=== PATIENT | male | born 1955 | race Caucasian/White ===

== ENCOUNTER 2021-12-14 12:23 | Emergency (ER) | payer BC, SELFPAY ==
--- NOTE | 2021-12-14 12:34 | ED.FEMALEGU ---
HPI - Female Genitourinary General Stated complaint: PAINFUL URINATION Source: patient and RN notes reviewed Mode of arrival: ambulatory Limitations: no limitations History of Present Illness MD elicited complaint: UTI Related Data Allergies Allergy/AdvReac Type Severity Reaction Status Date / Time No Known Allergies Allergy Mild Unverified 12/13/17 09:26 Review of Systems Review of Systems: CONSTITUTIONAL: Denies malaise, chills, sweats, or fever. CARDIOVASCULAR: Denies chest pain, palpitations, or edema. RESPIRATORY: Denies cough or dyspnea. GASTROINTESTINAL: Denies abdominal pain, nausea, vomiting, diarrhea GENITOURINARY: Reports dysuria, frequency, urgency, suprapubic pressure. Denies flank pain or hematuria. SKIN: Denies rash or itching. MUSCULOSKELETAL: Denies back pain or myalgia. All systems reviewed & are unremarkable except as noted in HPI and below PMFSH Comments At time of signature, agree with nursing past medical, surgical, social and family history. There is no relevant family history pertinent to the presenting complaint Exam Narrative: GENERAL: Well-appearing, well-nourished, and in no acute distress. HEAD: Normocephalic. EYES: PERRLA, conjunctivae clear. NECK: Supple. No lymphadenopathy CHEST: Clear to auscultation. No respiratory distress. HEART: Regular rate and rhythm. ABDOMEN: Soft, nontender upon palpation, nondistended, normal active bowel sounds, no palpable or pulsatile masses, no guarding. No CVA tenderness SKIN: Warm, dry, no rash. NEURO: Alert and oriented x3. PSYCH: Normal mood and affect Course Course Emergency Course: Patient is aware of diagnosis, understands and agrees to treatment plan. Anticipatory guidance given. Patient agrees to follow-up as directed and is aware of reasons to seek care at the emergency department. Portions of this record may have been created with voice recognition software Level of Care: Express Care Visit Vital Signs Vital signs: Reviewed. MDM - Female Genitourinary MDM Narrative Medical decision making narrative: Exam findings and UA show no acute concerns or changes; patient is non-toxic appearing and is in no distress. Patient is appropriate for outpatient treatment and follow-up. Differential Diagnosis Differential diagnosis: Likely urinary tract infection and cystitis Critical Care Time Critical Care Time Critical Care Time: No Discharge Plan Discharge Follow-up/Referrals: PHYSICIAN,[employer] [Primary Care Provider] -
[2021-12-14 12:55] VITALS: BP 131/81; PULSE 55; RESP 16; TEMP 36.8; O2SAT 97
--- NOTE | 2021-12-14 13:45 | ED.MALEGU ---
HPI - Male Genitourinary General Chief complaint: Urogenital-Male Stated complaint: PAINFUL URINATION Time Seen by Provider: 12/14/21 13:40 Source: patient and RN notes reviewed Mode of arrival: ambulatory Limitations: no limitations History of Present Illness HPI Narrative: 66-year-old male presents concern for intermittent dysuria for 1-1/2 months. Reports he has been taking Azo every time he has episodes of dysuria which improved the pain. Reports symptoms began again yesterday, he took Azo. He reports urine frequency, urgency. He denies hematuria, flank pain, body aches, chills, sweats, abdominal pain, nausea, low back pain. He reports he does feel that he is able to empty his bladder. He denies any testicular redness, swelling, pain. MD Complaint: dysuria Related Data Home Medications Medication Instructions Recorded Confirmed lisinopril 20 mg tablet mg 12/14/21 Allergies Allergy/AdvReac Type Severity Reaction Status Date / Time No Known Allergies Allergy Mild Verified 12/14/21 12:53 Review of Systems Review of Systems: CONSTITUTIONAL: Denies malaise, chills, sweats, or fever. CARDIOVASCULAR: Denies chest pain, palpitations, or edema. RESPIRATORY: Denies cough or dyspnea. GASTROINTESTINAL: Denies abdominal pain, nausea, vomiting, diarrhea GENITOURINARY: Reports dysuria, frequency, urgency. Denies testicular redness, swelling, pain, suprapubic pressure. Denies flank pain or hematuria. SKIN: Denies rash or itching. MUSCULOSKELETAL: Denies back pain or myalgia. All systems reviewed & are unremarkable except as noted in HPI and below PMFSH Comments At time of signature, agree with nursing past medical, surgical, social and family history. There is no relevant family history pertinent to the presenting complaint Exam Narrative: GENERAL: Well-appearing, well-nourished, and in no acute distress. HEAD: Normocephalic. EYES: PERRLA, conjunctivae clear. NECK: Supple. No lymphadenopathy CHEST: Clear to auscultation. No respiratory distress. HEART: Regular rate and rhythm. ABDOMEN: Soft, nontender upon palpation, nondistended, normal active bowel sounds, no palpable or pulsatile masses, no guarding. No CVA tenderness SKIN: Warm, dry, no rash. NEURO: Alert and oriented x3. PSYCH: Normal mood and affect Course Course Emergency Course: Patient is aware of diagnosis, understands and agrees to treatment plan. Anticipatory guidance given. Patient agrees to follow-up as directed and is aware of reasons to seek care at the emergency department. Portions of this record may have been created with voice recognition software Level of Care: Express Care Visit Vital Signs Vital signs: Vital Signs Temperature 98.2 F 12/14/21 12:55 Pulse Rate 55 L 12/14/21 12:55 Respiratory Rate 16 12/14/21 12:55 Blood Pressure 131/81 12/14/21 12:55 Pulse Oximetry 97 12/14/21 12:55 Oxygen Delivery Room Air 12/14/21 12:55 Temperature 98.2 F 12/14/21 12:55 Pulse Rate 55 L 12/14/21 12:55 Respiratory Rate 16 12/14/21 12:55 Blood Pressure 131/81 12/14/21 12:55 Pulse Oximetry 97 12/14/21 12:55 Oxygen Delivery Room Air 12/14/21 12:55 Reviewed. MDM - Male Genitourinary MDM Narrative Medical decision making narrative: Exam findings show no acute concerns or changes; patient is non-toxic appearing and is in no distress. Patient is appropriate for outpatient treatment and follow-up. Differential Diagnosis Differential diagnosis: Likely urinary tract infection, urethritis, epididymitis and prostatitis Lab Data Labs: Urine Glucose Trace Reference Range: Negative Urine Bilirubin 1+ Reference Range: Negative Urine Ketone Trace Reference Range: Negative Urine Specific [place] 1.015
== END 2021-12-14 13:57 | disposition home or self-care (01) ==
PROVIDERS: Emergency Provider Nurse Practitioner
DX: R30.0 Dysuria (principal); R35.0 Frequency of micturition; R39.15 Urgency of urination; I10 Essential (primary) hypertension
CPT/HCPCS: 81003; 87086; 99203; G0463

== ENCOUNTER 2022-03-05 02:22 | Day surgery (SDC) | payer BC, SELFPAY ==
[2022-02-24 10:43] VITALS: BMI 26.8
--- NOTE | 2022-02-24 11:10 | PC.NURSE ---
Report to the Outpatient Waiting Room, entrance under the green pavilion located off [facility], at time ___0845____ on date __03/05/22 . OR Time: ____1044____. Time changes happen often and if your time is changed the preop area will call you the afternoon before. - You and your visitor will be asked to self-screen and do not enter if you have any COVID symptoms. - We encourage only one visitor and NO visitors under age 16 are allowed at this time. Your visitor will receive communication by the phone number that is given day of service. - The patient visitor is requested to social distance or may leave the building when not with patient due to restrictions. - A mask is required within the hospital. Patients may have clear liquids (water, carbonated beverages, clear teas, apple juice) until 3 hours prior to surgery (0745 AM) with a maximum of 20 ounces. - No food from midnight until time of surgery - Infants may have breast milk until 4 hours before surgery, formula 6 hours prior to surgery. - Children will be allowed to drink immediately following surgery. If applicable, please bring a bottle or sippy cup to assist with drinking. Juice, water, soda, and popsicles are readily available. For infants on formula, please bring formula the day of surgery. Pacifiers are allowed. Take the following medications with a SIP of water the morning of surgery: N/A Medications to discontinue per physician N/A Date to take last dose Please no make-up, nail ugandan, hairspray, perfume, deodorant, or body powder the day of surgery. No jewelry (including any body piercings) or valuables the day of surgery, leave them at home. Please take a shower or bath the night before, or the morning of, surgery with an antibacterial soap. Wear comfortable, loose fitting clothing. Children are encouraged to wear pajamas. - Jewelry must be removed prior to entering the operating room. Rings and piercings that are not removed may be cut off. - The hospital will not accept responsibility for valuables. - Please leave all valuables, including medications, at home the day of surgery. If you are going home after surgery, a licensed electric train driver must drive you home. - NO public transportation without another adult. - We recommend that an adult stay with you for 24 hours following discharge. - We also recommend that you do not drive, make important decision, drink alcoholic beverages, or take any drugs that were not prescribed by your health care provider for at least 24 hours after your discharge time. For Pediatric surgeries, we recommend two adults accompany the child home. Follow any additional instructions given to you from your surgeon. If you or anyone in your household have experienced Covid symptoms in the past week, please notify your surgeon or the nurse liaison at the phone number below for possible testing. Telephone instructions given to ___PT and asked if any additional questions and then verbalized understanding. Patient advised to call surgeon office or pre surgery nurse liaison [phone] if any additional questions.
--- NOTE | 2022-03-04 10:28 | P.PNAN_ITS ---
Anes - Initial Pre Proc Eval Procedure: Operation Date: 03/05/22 10:45 Proposed Procedures p Cystoscopy, Bladder Biopsy - Scotty Rodney MD Date/Time: 03/04/22 10:28 Surgeon: Scotty Rodney MD Pre Op Diagnosis: urinary frequency, abnormal cytology Patient Data Age: 67 Gender: M Height: 1.84 m Weight: 90.9 kg Allergies Allergy/AdvReac Type Severity Reaction Status Date / Time No Known Allergies Allergy Mild Verified 02/24/22 10:42 Home Medications Medication Instructions Recorded Confirmed Type lisinopril 20 mg tablet 20 mg PO DAILY 12/14/21 03/05/22 History Patient hx anesthesia problems: none Family hx anesthesia problems: none Results Review: All pre-operative results and documents have been reviewed as part of the pre- operative evaluation. [facility] Past Medical History Medical History (Updated 01/07/22 @ 14:20 by Genesis Echols NP) Arthritis Dysuria Encounter to establish care HTN (hypertension) Migraine Urinary hesitancy Urinary urgency Family History Family History (Updated 01/07/22 @ 13:14 by Zahida Morgan MA) Father Alcoholism Depression Heart disease Anxiety Mother Heart disease Sibling Alcoholism Breast cancer Diabetes mellitus Depression Anxiety Other Depression Anxiety Grandparent Alcoholism Lung cancer Grandparent Alcoholism Social History Social History (Updated 01/07/22 @ 13:23 by Zahida Morgan MA) Smoking status: Former smoker Second hand tobacco smoke exposure: No Additional smoking assessment comments: PT STATES 1-4PK/DAY/6YRS/QUIT 1988 Alcohol intake: never Substance use: never Substance use type: does not use Living arrangements: with family Spiritual care concerns: No Anes - Eval Final PreProcedure Day of Procedure 03/04/22 10:28 Patient weight: overweight Heart: regular rate and rhythm Lungs: clear to auscultation Airway: Mallampati scale class II Neurological: alert and oriented Last oral intake: >/= 8 hours ASA classification: II Emergent: no Anesthetic plan: proceed Anesthesia type and monitoring: general LMA and standard monitoring Results Review: All pre-operative results and documents have been reviewed as part of the pre- operative evaluation. Informed Consent: The patient's anesthetic plan and its attendant risks and benefits were discussed with the patient/family/POA. Questions were solicited and answers provided to the satisfaction of the patient/family/POA.
[2022-03-05] VITALS (9 sets, daily range): BP systolic 85–143; BP diastolic 52–83; PULSE 39–52; RESP 11–20; TEMP 36.2–36.7; O2SAT 97–100; BMI 27.3
--- NOTE | ~2022-03-05 | XR_ITS ---
EXAMINATION: XR retrograde pyelogram BI DATE: 03/05/2022 11:17 INDICATION: Dysuria. TECHNIQUE: 133 intraoperative fluoroscopic views of the abdomen and pelvis were obtained. I was not p resent. Fluoroscopy exposure time was 26 seconds. COMPARISON: None. FINDINGS: The right-sided retrograde pyelogram is normal. The left-sided retrograde pyelogram is norm al. IMPRESSION: 1. Normal bilateral retrograde pyelograms. Reviewed, dictated and finalized at location A.
--- NOTE | 2022-03-05 06:41 | WPDHPUPDATE1 ---
History and Physical Update Update Date/Time: 03/05/22 06:41 History and Physical has been reviewed, including an updated exam of the patient. There are NO changes in the patient's condition. Risks, benefits, and alternatives have been discussed and questions answered. Patient agrees to proceed with procedure.
[2022-03-05] MEDS: LACTATED RINGERS 1,000 ML 30 ML IV CONT (10:03)
[2022-03-05] MEDS: ceFAZolin 2 GM/D5W 50 ML 2 GM/50 ML BAG IVPB (10:56)
[2022-03-05] MEDS: LIDOCAINE HCL 2% GEL UROJET 10 ML PKG MUCOUS MEM (11:03)
--- NOTE | 2022-03-05 11:18 | W.PM.PROC2 ---
Procedure Note - Detailed Date of Procedure 03/05/22 Pre-op Diagnosis Urinary frequency, abnormal cytology, dysuria Post-op Diagnosis Same Procedure Performed cystoscopy, bilateral retrograde pyelography and bladder biopsy Surgeon Scotty Rodney MD Description of Procedure patient is brought the op suite where he was prepped draped in routine sterile fashion while in dorsal lithotomy position. Cystoscopy is undertaken with a 21 F rigid cystoscope. There was no urethral strictures and fairly minimal lateral lobe hyperplasia of the prostate without a median lobe. His bladder shows a fairly large area of intense hyperemia in the left lateral wall. The remainder of the bladder mucosa is normal. There was no salo intravesical neoplasm and there are no foreign bodies identified. He has a single orthotopic ureteral orifice bilaterally. Retrograde pyelography is obtained with an 8 F bulb-tipped catheter. Ureteral pyelograms are normal bilaterally, showing no signs of obstruction, filling defects or other identifiable pathology. A biopsy forceps was the used to obtain biopsies from the hyperemic areas of the bladder. Base of the sites are cauterized with the Bugbee electrode. The bladder was emptied the patient has taken recovery room good condition after removing the cystoscope. Drains No Packing No Pathology Yes Complications No immediate complications Condition Stable
--- NOTE | 2022-03-05 11:45 | SUR.PHASEI ---
1145: Simple mask removed.
== END 2022-03-05 13:26 | disposition home or self-care (01) ==
PROVIDERS: PCP Nurse Practitioner Family; Visit Provider Urology
PROC: 0TBB8ZX Excision of Bladder, Via Natural or Artificial Opening Endoscopic, Diagnostic (ICD-10-PCS; CPT 52204; principal; 2022-03-05 10:45)
DX: R30.0 Dysuria (principal); R35.0 Frequency of micturition; R82.90 Unspecified abnormal findings in urine; I10 Essential (primary) hypertension; Z87.891 Personal history of nicotine dependence
CPT/HCPCS: 52204; 74420; 88305; 88342; A9270; C1758; J0690; J1100; J2250; J2405; J2704; J3010; J7120; Q9966

== ENCOUNTER 2022-03-19 02:44 | Day surgery (SDC) | payer SELFPAY ==
--- NOTE | 2022-03-16 12:43 | PC.NURSE ---
Report to the Outpatient Waiting Room, entrance under the green pavilion located off [facility], at time __0830 on date __03/19/22 . Planned Procedure Time: _1030 . Time changes happen often and if your time is changed the preop area will call you the afternoon before. - You and your visitor will be asked to self-screen and do not enter if you have any COVID symptoms. - We encourage only one visitor and NO visitors under age 16 are allowed at this time. Your visitor will receive communication by the phone number that is given day of service. - The patient visitor is requested to social distance or may leave the building when not with patient due to restrictions. - A mask is required within the hospital. Patients may have clear liquids (water, carbonated beverages, clear teas, apple juice) until 3 hours prior to surgery with a maximum of 20 ounces. - No food from midnight until time of surgery - Infants may have breast milk until 4 hours before surgery, formula 6 hours prior to surgery. - Children will be allowed to drink immediately following surgery. If applicable, please bring a bottle or sippy cup to assist with drinking. Juice, water, soda, and popsicles are readily available. For infants on formula, please bring formula the day of surgery. Pacifiers are allowed. Take the following medications with a SIP of water the morning of surgery: ___CEPHALEXIN Medications to discontinue per physician NONE Date to take last dose Please no make-up, nail occitan, hairspray, perfume, deodorant, or body powder the day of surgery. No jewelry (including any body piercings) or valuables the day of surgery, leave them at home. Please take a shower or bath the night before, or the morning of, surgery with an antibacterial soap. Wear comfortable, loose fitting clothing. Children are encouraged to wear pajamas. - Jewelry must be removed prior to entering the operating room. Rings and piercings that are not removed may be cut off. - The hospital will not accept responsibility for valuables. - Please leave all valuables, including medications, at home the day of surgery. If you are going home after surgery, a licensed intermodal truck driver must drive you home. - NO public transportation without another adult. - We recommend that an adult stay with you for 24 hours following discharge. - We also recommend that you do not drive, make important decision, drink alcoholic beverages, or take any drugs that were not prescribed by your health care provider for at least 24 hours after your discharge time. For Pediatric surgeries, we recommend two adults accompany the child home. Follow any additional instructions given to you from your surgeon. If you or anyone in your household have experienced Covid symptoms in the past week, please notify your surgeon or the nurse liaison at the phone number below for possible testing. Telephone instructions given to _PATIENT and asked if any additional questions and then verbalized understanding. Patient advised to call surgeon office or pre surgery nurse liaison [phone] if any additional questions.
[2022-03-16 12:47] VITALS: BMI 27.1
--- NOTE | 2022-03-17 07:48 | P.HP_ITS ---
History of Present Illness History of Present Illness Consent: Risks, benefits, and alternatives have been discussed and questions answered. Patient agrees to proceed with procedure. Chief complaint: Dysuria Narrative: Fred Gannon is a 67 year old male with persistent dysuria and atypical urinary cytology. Outpatient cystoscopy showed hyperemia involving segments of his bladder. He had a prior recent bladder biopsy was inconclusive. He presents now for repeat biopsy. He is aware of the risk including postoperative pain, hematuria. Review of Systems Cardiovascular: Cardiovascular: Denies chest pain, Denies lightheadedness, Denies palpitations and Denies dyspnea Respiratory: Respiratory: Denies dyspnea Gastrointestinal: Gastrointestinal: Denies diarrhea, Denies nausea and Denies vomiting Genitourinary: Genitourinary: Denies hematuria and Reports dysuria Endocrine: Endocrine: Denies palpitations [facility] Past Medical History Medical History (Updated 01/07/22 @ 14:20 by Genesis Echols NP) Arthritis Dysuria Encounter to establish care HTN (hypertension) Migraine Urinary hesitancy Urinary urgency Family History Family History (Updated 01/07/22 @ 13:14 by Zahida Morgan MA) Father Alcoholism Depression Heart disease Anxiety Mother Heart disease Sibling Alcoholism Breast cancer Diabetes mellitus Depression Anxiety Other Depression Anxiety Grandparent Alcoholism Lung cancer Grandparent Alcoholism Social History Social History (Updated 01/07/22 @ 13:23 by Zahida Morgan MA) Smoking status: Former smoker Tobacco type: cigarettes Second hand tobacco smoke exposure: No Smoking end date: 05/17/88 Additional smoking assessment comments: PT STATES 1-4PK/DAY/6YRS/QUIT 1988 Alcohol intake: never Substance use: never Substance use type: does not use Living arrangements: with family Spiritual care concerns: No Meds Home Medications and Allergies Home Medications Medication Instructions Recorded Confirmed Type lisinopril 20 mg tablet 20 mg PO DAILY 12/14/21 03/16/22 History cephalexin 500 mg capsule 500 mg PO Q8H #9 caps 03/05/22 03/16/22 Rx hydrocodone 5 mg-acetaminophen 325 1 - 2 tablet PO Q6H PRN pain #20 03/05/22 03/16/22 Rx mg tablet tabs Allergies Allergy/AdvReac Type Severity Reaction Status Date / Time No Known Allergies Allergy Mild Verified 03/16/22 12:36 Exam Const: General: no acute distress Resp: Effort & Inspection: normal respiratory effort GI: Inspection: non-distended GI Palp: No abdominal tenderness and No Guarding due to palpation present (GI) Auscultation: normal bowel sounds Assessment and Plan Assessment and plan (1) Urinary urgency: Code(s): R39.15 - Urgency of urination Status: Acute Assessment and Plan: * Cystoscopy with bladder biopsy (2) Dysuria: Code(s): R30.0 - Dysuria Status: Acute
--- NOTE | 2022-03-19 07:14 | WPDHPUPDATE1 ---
History and Physical Update Update Date/Time: 03/19/22 07:14 History and Physical has been reviewed, including an updated exam of the patient. There are NO changes in the patient's condition. Risks, benefits, and alternatives have been discussed and questions answered. Patient agrees to proceed with procedure.
[2022-03-19 09:00] VITALS: BP 127/72; PULSE 49; RESP 18; TEMP 36.6; O2SAT 99
[2022-03-19] MEDS: LACTATED RINGERS 1,000 ML 30 ML IV CONT ×2 (09:00→10:57)
--- NOTE | 2022-03-19 09:41 | WPDANESEPPF ---
Anes - Initial Pre Proc Eval Procedure: Operation Date: 03/19/22 10:30 Proposed Procedures p Cystoscopy, Bladder Biopsy - Scotty Rodney MD Date/Time: 03/19/22 09:41 Surgeon: Scotty Rodney MD Pre Op Diagnosis: Dysuria Patient Data Age: 67 Gender: M Height: 1.83 m Weight: 91.2 kg Last Vital Signs Temp 36.6 C 03/19/22 09:00 Pulse 49 L 03/19/22 09:00 Resp 18 03/19/22 09:00 BP 127/72 03/19/22 09:00 Pulse Ox 99 03/19/22 09:00 O2 Del Method Room Air 03/19/22 09:00 Allergies Allergy/AdvReac Type Severity Reaction Status Date / Time No Known Allergies Allergy Mild Verified 03/19/22 09:30 Home Medications Medication Instructions Recorded Confirmed Type lisinopril 20 mg tablet 20 mg PO DAILY 12/14/21 03/19/22 History cephalexin 500 mg capsule 500 mg PO Q8H #9 caps 03/05/22 03/19/22 Rx hydrocodone 5 mg-acetaminophen 325 1 - 2 tablet PO Q6H PRN pain #20 03/05/22 03/19/22 Rx mg tablet tabs Patient hx anesthesia problems: none Family hx anesthesia problems: none Results Review: All pre-operative results and documents have been reviewed as part of the pre-operative evaluation. [facility] Past Medical History Medical History Arthritis Dysuria Encounter to establish care HTN (hypertension) Migraine Urinary hesitancy Urinary urgency Family History Family History Father Alcoholism Depression Heart disease Anxiety Mother Heart disease Sibling Alcoholism Breast cancer Diabetes mellitus Depression Anxiety Other Depression Anxiety Grandparent Alcoholism Lung cancer Grandparent Alcoholism Social History Social History Smoking status: Former smoker Tobacco type: cigarettes Second hand tobacco smoke exposure: No Smoking end date: 05/17/88 Additional smoking assessment comments: PT STATES 1-4PK/DAY/6YRS/QUIT 1988 Alcohol intake: never Substance use: never Substance use type: does not use Living arrangements: with family Spiritual care concerns: No Anes - Eval Final PreProcedure Day of Procedure 03/19/22 09:41 Patient weight: overweight Heart: regular rate and rhythm Lungs: clear to auscultation Airway: Mallampati scale class II Neurological: alert and oriented Last oral intake: >/= 8 hours ASA classification: II Emergent: no Anesthetic plan: proceed Anesthesia type and monitoring: general GIVS and standard monitoring Results Review: All pre-operative results and documents have been reviewed as part of the pre-operative evaluation. Informed Consent: The patient's anesthetic plan and its attendant risks and benefits were discussed with the patient/family/POA. Questions were solicited and answers provided to the satisfaction of the patient/family/POA.
[2022-03-19] MEDS: ceFAZolin 2 GM/D5W 50 ML 2 GM/50 ML BAG IVPB (10:12)
[2022-03-19] MEDS: LIDOCAINE HCL 2% GEL UROJET 10 ML PKG MUCOUS MEM (10:28)
[2022-03-19 10:44] VITALS: BP 85/63; PULSE 68; RESP 12; O2SAT 100
--- NOTE | 2022-03-19 10:45 | W.PM.PROC2 ---
Procedure Note - Detailed Date of Procedure 03/19/22 Pre-op Diagnosis Dysuria Post-op Diagnosis Same Procedure Performed Cystoscopy, bladder biopsy Surgeon Scotty Rodney MD Anesthesia MAC Description of Procedure Patient is brought the op suite where he was prepped draped in routine sterile fashion while in dorsal lithotomy position.? Cystoscopy is undertaken with a 21 F rigid cystoscope.? There was no urethral strictures and fairly minimal lateral lobe hyperplasia of the prostate without a median lobe.? His bladder shows a fairly large area of intense hyperemia in the left lateral wall with 2 areas of healing from prior recent bladder biopsy.? The remainder of the bladder mucosa is normal.? There was no salo intravesical neoplasm and there are no foreign bodies identified.? He has a single orthotopic ureteral orifice bilaterally.? Retrograde pyelography is obtained with an 8 F bulb-tipped catheter.? Ureteral pyelograms are normal bilaterally, showing no signs of obstruction, filling defects or other identifiable pathology.? A biopsy forceps was the used to obtain biopsies from the hyperemic areas of the bladder.? Base of the sites are cauterized with the Bugbee electrode.? The bladder was emptied the patient has taken recovery room good condition after removing the cystoscope. Drains No Packing Yes Pathology Yes Complications No immediate complications Condition Stable Disposition PACU
[2022-03-19 11:10] VITALS: BP 102/57; PULSE 54; RESP 14; O2SAT 96
[2022-03-19 11:40] VITALS: BP 136/84; PULSE 56; RESP 14
== END 2022-03-19 11:57 | disposition home or self-care (01) ==
PROVIDERS: PCP Nurse Practitioner Family; Visit Provider Urology
PROC: 0TBB8ZX Excision of Bladder, Via Natural or Artificial Opening Endoscopic, Diagnostic (ICD-10-PCS; CPT 52204; principal; 2022-03-19 10:30)
DX: N32.89 Other specified disorders of bladder (principal); R30.0 Dysuria; R39.15 Urgency of urination; I10 Essential (primary) hypertension; Z87.891 Personal history of nicotine dependence
CPT/HCPCS: 52204; 88305; 88342; A9270; C1758; J0690; J2250; J2405; J2704; J3010; J7120

== ENCOUNTER 2022-10-22 10:16 | Outpatient (CLI) | payer BC, SELFPAY ==
--- NOTE | 2022-10-22 10:31 | ECG_ITS ---
Measurements Intervals [place] Rate: 32 P: 69 TN: 182 QRS: 33 QRSD: 111 T: 42 QT: 485 QTc: 354 Interpretive Statements SINUS BRADYCARDIA MODERATE INTRAVENTRICULAR CONDUCTION DELAY [110+ ms QRS DURATION] NO PREVIOUS ECG AVAILABLE FOR COMPARISON Electronically Signed On 10-22-2022 10:57:45 CDT by Alan Chin M.D.
== END 2022-10-22 10:17 | disposition home or self-care (01) ==
LOC: ANHLAB 10:18
PROVIDERS: PCP Nurse Practitioner Family; Visit Provider Nurse Practitioner Family
DX: R00.1 Bradycardia, unspecified (principal); I10 Essential (primary) hypertension; I45.9 Conduction disorder, unspecified
CPT/HCPCS: 93005

== ENCOUNTER 2023-11-15 15:17 | Outpatient (CLI) | payer BC, SELFPAY ==
--- NOTE | ~2023-11-15 | CT_ITS ---
EXAMINATION: CT abdomen pelvis w con DATE: 11/15/2023 15:38 INDICATION: Right lower quadrant abdominal pain TECHNIQUE: Computed tomography (CT) of the abdomen and pelvis was performed with 100 mL Omnipaque-350 intravenous contrast. Automated exposure control and iterative reconstruction technique were employe d. The dose-length product was 716.29 mGy-cm. COMPARISON: None FINDINGS: Lung bases are clear. Heart size is normal. No pericardial or pleural effusion. Electronic pacemaker with lead tips at the right atrial and right ventricle. Several scattered hepatic cysts the largest m easuring 8.8 cm at the caudal right hepatic lobe and the next largest measuring 2.4 cm in the left he patic lobe. Spleen, pancreas and bilateral adrenal glands are normal. There are bilateral renal cysts measuring up to 10 mm in the right upper pole. 3 mm nonobstructing stone at the lower pole of the ri ght kidney. No ureteral stones or hydronephrosis. Bladder is normal. Mild prostatomegaly measuring 4. 8 x 3.6 cm. Moderate sigmoid diverticulosis without adjacent inflammatory stranding to suggest divert iculitis. Small bowel and appendix are normal. No free intraperitoneal gas or fluid. No pathologicall y enlarged abdominal or pelvic lymphadenopathy. Mild lumbar levocurvature with severe spondylosis. IMPRESSION: 1. No acute intra-abdominal/pelvic process. 2. 3 mm nonobstructing right renal stone. Reviewed, dictated and finalized at location B.
== END 2023-11-15 15:18 | disposition home or self-care (01) ==
PROVIDERS: PCP Nurse Practitioner Family; Visit Provider Nurse Practitioner Family
DX: R10.31 Right lower quadrant pain (principal); R10.32 Left lower quadrant pain; N50.819 Testicular pain, unspecified; R10.12 Left upper quadrant pain; N20.0 Calculus of kidney
CPT/HCPCS: 74177; Q9967

== ENCOUNTER 2024-02-19 08:46 | Outpatient (CLI) | payer BC, SELFPAY ==
--- NOTE | ~2024-02-19 | US_ITS ---
EXAMINATION: US abdomen complete DATE: 02/19/2024 10:13 INDICATION: R10.30 - Lower abdominal pain, unspecified TECHNIQUE: Multiple grayscale and Doppler ultrasound images of the abdomen were obtained. COMPARISON: CT abdomen pelvis 11/15/2023. FINDINGS: The visualized portions of the pancreas are normal. The liver is normal with normal echogen icity and echotexture. No surface nodularity. Multiple simple liver cysts, largest measuring up to 8. 5 cm. Normal hepatopetal flow in the main portal vein. The gallbladder is normal with no abnormal wal l thickening, pericholecystic fluid or stones. The common bile duct measures 3 mm. There was no sonog raphic Walker sign. Mild fusiform dilation of the abdominal aorta measuring up to 3.0 cm. The right kidney measures 13.1 x 4.8 x 5.4 cm. The left kidney measures 11.1 x 5.3 x 6.0 cm. The kidn eys demonstrate normal parenchymal echogenicity. Bilateral simple renal cysts. There is no hydronephr osis. The spleen is normal in appearance and measures 8.4 cm. IMPRESSION: Fusiform abdominal aortic aneurysm measuring up to 3.0 cm. Recommend follow-up ultrasound aorta in 3 years. Otherwise unremarkable abdominal ultrasound findings. Reviewed, dictated and finalized at location K.
== END 2024-02-19 08:47 | disposition home or self-care (01) ==
PROVIDERS: PCP Nurse Practitioner Family; Visit Provider Nurse Practitioner Family
DX: I71.40 Abdominal aortic aneurysm, without rupture, unspecified (principal); R10.30 Lower abdominal pain, unspecified
CPT/HCPCS: 76700

== ENCOUNTER 2024-04-03 16:03 | Outpatient (CLI) | payer BC, SELFPAY ==
--- NOTE | ~2024-04-03 | XR_ITS ---
EXAMINATION: XR abdomen/kub 1V DATE: 04/03/2024 16:12 INDICATION: Low abdominal pain. Kidney stones. TECHNIQUE: A supine view of the abdomen on 2 radiographs was obtained. COMPARISON: CT abdomen and pelvis 11/15/2023 FINDINGS: There are no dilated loops of bowel. The kidneys are obscured by bowel. There is a phleboli th in right pelvis. IMPRESSION: 1. No visible urolithiasis. Reviewed, dictated and finalized at location A. 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 No visible urolithiasis.
== END 2024-04-03 16:04 | disposition home or self-care (01) ==
LOC: MICIMG 16:04
PROVIDERS: PCP Nurse Practitioner Family; Visit Provider Urology
DX: Z87.442 Personal history of urinary calculi (principal)
CPT/HCPCS: 74018

== ENCOUNTER 2024-04-07 01:53 | Day surgery (SDC) | payer BC, SELFPAY ==
[2024-03-23 15:04] VITALS: BMI 28.4
[2024-04-07 11:46] VITALS: BP 98/78; PULSE 75; RESP 18; TEMP 36.6; O2SAT 97
--- NOTE | 2024-04-07 12:03 | P.PNAN_ITS ---
Anes - Initial Pre Proc Eval Procedure: Operation Date: 04/07/24 13:00 Proposed Procedures p Colonoscopy - Fermin Martinez MD Date/Time: 04/07/24 12:03 Surgeon: Fermin Martinez MD Pre Op Diagnosis: lower abd pain Patient Data Age: 69 Gender: M Height: 1.83 m Weight: 92.6 kg Last Vital Signs Temp 97.9 F 04/07/24 11:46 Pulse 75 04/07/24 11:46 Resp 18 04/07/24 11:46 BP 98/78 L 04/07/24 11:46 Pulse Ox 97 04/07/24 11:46 O2 Del Method Room Air 04/07/24 11:46 Allergies Allergy/AdvReac Type Severity Reaction Status Date / Time No Known Allergies Allergy Mild Verified 04/07/24 11:42 Home Medications Medication Instructions Recorded Confirmed Type lisinopril 20 mg tablet 20 mg PO DAILY #90 tabs 06/18/23 04/07/24 Rx bimatoprost [Lumigan] 1 drp ophthalmic (eye) HS 10/18/23 04/07/24 History montelukast 10 mg tablet 10 mg PO QHS #30 tabs 11/04/23 04/07/24 Rx sildenafil 100 mg tablet (Viagra) 100 mg PO DAILY PRN sexual 12/09/23 04/07/24 Rx activity #9 tabs tamsulosin 0.4 mg capsule 0.4 mg PO QHS #30 caps 12/13/23 04/07/24 Rx Patient hx anesthesia problems: none Family hx anesthesia problems: none Results Review: All pre-operative results and documents have been reviewed as part of the pre- operative evaluation. [facility] Past Medical History Medical History Acute bilateral lower abdominal pain Arthritis Bilateral renal cysts Bilirubin in urine BMI 28.0-28.9,adult Bradycardia Cataract Dysuria Elevated fasting glucose Encounter to establish care Hepatic cyst HTN (hypertension) Hyperlipidemia Left upper quadrant abdominal pain Low back pain Lower abdominal pain Migraine Open-angle glaucoma Pacemaker Peripheral neuropathy Right knee pain Right renal stone 3mm, nonobstructing Seasonal allergies Sinus node dysfunction Testicular pain Urinary hesitancy Urinary urgency Vertigo Family History Family History Father Alcoholism Depression Heart disease Anxiety Mother Heart disease Sibling Alcoholism Breast cancer Diabetes mellitus Depression Anxiety Other Depression Anxiety Grandparent Alcoholism Lung cancer Grandparent Alcoholism Social History Social History Smoking status: Former smoker Tobacco type: cigarettes Second hand tobacco smoke exposure: No Smoking end date: 05/17/88 Additional smoking assessment comments: PT STATES 1-4PK/DAY/6YRS/QUIT 1988 Alcohol intake: never Substance use: former Substance use type: marijuana Lack of Transportation: No Lack of Food: Never True Current Housing: I Have Housing Concerned About Future Housing: No Difficulty Paying Gas/Electric Bills: No Difficulty Paying for Meds: No Currently Unemployed: No Education: Bachelor's Degree Difficulty w/ Childcare or Family Care: No Living arrangements: with family Spiritual care concerns: No Anes - Eval Final PreProcedure Day of Procedure 04/07/24 12:03 Patient weight: normal Heart: regular rate and rhythm Lungs: clear to auscultation Airway: Mallampati scale class II Neurological: alert and oriented Last oral intake: >/= 8 hours ASA classification: III Emergent: no Anesthetic plan: proceed Anesthesia type and monitoring: general GIVS and standard monitoring Results Review: All pre-operative results and documents have been reviewed as part of the pre- operative evaluation. Informed Consent: The patient's anesthetic plan and its attendant risks and benefits were discus sed with the patient/family/POA. Questions were solicited and answers provided to the satisfaction of the patient/family/POA.
[2024-04-07] MEDS: LACTATED RINGERS 1,000 ML 150 ML IV CONT (12:12)
--- NOTE | 2024-04-07 13:07 | PM.IMHP ---
H&P: HPI History of Present Illness Date/Time: 04/07/24 13:07 Chief Complaint: History of colon polyps - lower abdominal pain. Narrative: The patient has a history of colonic polyps, the last colonoscopy was in 2018. In addition, patient has seen in our office for an atypical a chronic lower abdominal pain. He is here for colonoscopy. Review of Systems Review of Systems: All systems reviewed & are unremarkable except as noted in HPI and below PMFSH Past Medical History Medical History Acute bilateral lower abdominal pain Arthritis Bilateral renal cysts Bilirubin in urine BMI 28.0-28.9,adult Bradycardia Cataract Dysuria Elevated fasting glucose Encounter to establish care Hepatic cyst HTN (hypertension) Hyperlipidemia Left upper quadrant abdominal pain Low back pain Lower abdominal pain Migraine Open-angle glaucoma Pacemaker Peripheral neuropathy Right knee pain Right renal stone 3mm, nonobstructing Seasonal allergies Sinus node dysfunction Testicular pain Urinary hesitancy Urinary urgency Vertigo Family History Family History Father Alcoholism Depression Heart disease Anxiety Mother Heart disease Sibling Alcoholism Breast cancer Diabetes mellitus Depression Anxiety Other Depression Anxiety Grandparent Alcoholism Lung cancer Grandparent Alcoholism Social History Social History Smoking status: Former smoker Tobacco type: cigarettes Second hand tobacco smoke exposure: No Smoking end date: 05/17/88 Additional smoking assessment comments: PT STATES 1-4PK/DAY/6YRS/QUIT 1988 Alcohol intake: never Substance use: former Substance use type: marijuana Lack of Transportation: No Lack of Food: Never True Current Housing: I Have Housing Concerned About Future Housing: No Difficulty Paying Gas/Electric Bills: No Difficulty Paying for Meds: No Currently Unemployed: No Education: Bachelor's Degree Difficulty w/ Childcare or Family Care: No Living arrangements: with family Spiritual care concerns: No Meds Home Medications and Allergies Home Medications Medication Instructions Recorded Confirmed Type lisinopril 20 mg tablet 20 mg PO DAILY #90 tabs 06/18/23 04/07/24 Rx bimatoprost [Lumigan] 1 drp ophthalmic (eye) HS 10/18/23 04/07/24 History montelukast 10 mg tablet 10 mg PO QHS #30 tabs 11/04/23 04/07/24 Rx sildenafil 100 mg tablet (Viagra) 100 mg PO DAILY PRN sexual 12/09/23 04/07/24 Rx activity #9 tabs tamsulosin 0.4 mg capsule 0.4 mg PO QHS #30 caps 12/13/23 04/07/24 Rx Allergies Allergy/AdvReac Type Severity Reaction Status Date / Time No Known Allergies Allergy Mild Verified 04/07/24 11:42 Vital Signs Vital Signs - 24 hr 04/07/24 11:46 Temperature 97.9 F Pulse Rate 75 Respiratory Rate 18 Blood Pressure 98/78 L Pulse Oximetry 97 Oxygen Delivery Room Air Exam Const: General: no acute distress Resp: Effort & Inspection: normal respiratory effort GI: Inspection: non-distended GI Palp: No abdominal tenderness and No Guarding due to palpation present (GI) Auscultation: normal bowel sounds Assessment and Plan Assessment and plan (1) History of colonic polyps: Code(s): Z86.0100 - Personal history of colon polyps, unspecified Status: Acute Assessment and Plan: The patient is deemed a good candidate for the procedure. Consent signed. Will proceed.
[2024-04-07 13:38] VITALS: BP 100/56; PULSE 70; RESP 13; O2SAT 96
[2024-04-07 13:48] VITALS: BP 110/76; PULSE 72; RESP 16; O2SAT 100
[2024-04-07 13:58] VITALS: BP 108/79; PULSE 70; RESP 22; O2SAT 98
== END 2024-04-07 14:05 | disposition home or self-care (01) ==
PROVIDERS: PCP Nurse Practitioner Family; Referring Provider Nurse Practitioner Family; Visit Provider Internal Medicine Gastroenterology
PROC: 0DJD8ZZ Inspection of Lower Intestinal Tract, Via Natural or Artificial Opening Endoscopic (ICD-10-PCS; CPT 45378; principal; 2024-04-07 13:00)
DX: R10.30 Lower abdominal pain, unspecified (principal); D12.2 Benign neoplasm of ascending colon; K57.30 Diverticulosis of large intestine without perforation or abscess without bleeding; I10 Essential (primary) hypertension; E78.5 Hyperlipidemia, unspecified; Z95.0 Presence of cardiac pacemaker; Z87.891 Personal history of nicotine dependence
CPT/HCPCS: 45385; 88305; J2704; J7120

== ENCOUNTER → 2025-03-06 11:42 | Outpatient (CLI) | payer BC, SELFPAY ==
--- NOTE | ~2025-03-06 | XR_ITS ---
EXAMINATION: XR shoulder RT min 2V, 03/06/2025 11:30 CDT HISTORY: M25.511-Pain in right shoulder post pickleball game COMPARISON: No comparisons available. Findings: No acute fracture or malalignment. Moderate degenerative changes Soft tissues unremarkable. Impression: No acute fracture or malalignment. Reviewed, dictated and finalized at location P. Impression: No acute fracture or malalignment.
--- OUTSIDE RECORDS SUMMARY | 2025-03-06 14:36 | XMS_ITS | Clinical Summary ---
Author Organization [facility] Address [address] [place] [address] Care Team Providers Care Library Director Name Role Phone Unavailable Primary Care Provider Unavailabl e Source Comments [facility],non-owned Affiliates and Associated Physician Practices is amultiple site organization consisting of ambulatory clinics and hospital sitesin [place], [place], [place] and [place]. This disclosure is being madepursuant to the Care Everywhere program and may not contain all information available regarding this patient. Last updated 18.[facility] Allergies No known active allergies Medications * This document contains information received from the source organization and may not represent a complete record from that organization. * Be aware that medications may not be up to date on this document. Alwaysverify current medications with the patient. olanzapine (ZYPREXA) 10 MG tablet Take 1 Tab by mouth at bedtime. 1 0 04/19/2009 Active amphetamine-dex troamphetamine (ADDERALL) 5 MG tablet Take 5 mg by mouth 2 times daily. Active zolpidem (AMBIEN) 10 MG tablet Take 10 mg by mouth nightly as needed. Active Active Problems Problem Noted Date Diagnosed Date Tinnitus 04/17/2009 Elevated BP 04/17/2009 Depression Family History Medical History Relation Name Comments CAD (Coronary Artery Disease) Father CAD (Coronary Artery Disease) Mother Relation Name Status Comments Father Mother Social History Tobacco Use Types Packs/Day Years Used Date Smoking Tobacco: Never Alcohol Use Standard Drinks/Week Comments No 0 (1 standard drink = 0.6 oz pur e alcohol) Sex and Gender Information Value Date Recorded Sex Assigned at Not on file Legal Sex Male 8:15 AM [employer]EL[employer] Gender Identity Not on file Sexual Orientation Not on file Last Filed Vital Signs Vital Sign Reading Time Taken Comments Blood Pressure 136/75 01/21/2012 9:20 AM CDT Pulse 51 01/21/2012 9:20 AM CDT Temperature 36.6 C (97.8 F) 01/21/2012 9:20 AM CDT Respiratory Rate 20 01/21/2012 9:20 AM CDT Oxygen Saturation 98% 01/21/2012 9:20 AM CDT Inhaled Oxygen Concentration - - Weight 93 kg (205 lb) 01/21/2012 7:17 AM CDT Height 185.4 cm (6' 1) 01/21/2012 7:17 AM CDT Body Mass Index 27.05 01/21/2012 7:17 AM CDT Plan of Treatment Health Maintenance Due Date Last Done Comments COLOGUARD (AGES 45-75) - COL ON CA SCREENING 1957 COLON MONITORING 1957 COLONOSCOPY - COLON CA SCREENING 1957 CT COLONOGRAPHY - COLON CA SCREENING 1957 Colorectal Cancer Screening 1957 FIT - COLON CA SCREENING 1957 FLEX SIG - COLON CA SCREENING 1957 LIPID TESTING 1957 HEPATITIS C SCREENING 01/01/1975 DTAP/TDAP/TD VACCINES (1 - Tdap) 01/06/1976 PNEUMOCOCCAL VACCINE 50+ (1 of 1 - PCV) 2007 ZOSTER VACCINE (1 of 2) 2007 DEPRESSION SCREENING 05/17/2024 COVID-19 VACCINE (1 - 2023-2 5 season) 2025 INFLUENZA VACCINE (#1) 2025 Respiratory Syncytial Virus (RSV) Vaccine Pt: or over 60 yrs (1 - 1-dose 75+ series) 01/06/2032 HEPATITIS B VACCINE Aged Out No longe r eligible based on patient's age to complete this topic HIB VACCINE Aged Out No longer eligi ble based on patient's age to complete this topic HPV VACCINE Aged Out No longer eligi ble based on patient's age to complete this topic MENINGOCOCCAL (Group B) VACC INE SHARED DECISION-MAKING Aged Out No longer eligibl e based on patient's age to complete this topic MENINGOCOCCAL GROUPS A/C/Y/W VACCINE Aged Out No longer eligible b ased on patient's age to complete this topic Insurance ANTHEM ANTHEM Advance Directives * Full Code (Latest Code Status on File) Date Activated Date Inactivated Comments 04/16/2009 6:59 PM 04/20/2009 8:31 AM
== END ==
PROVIDERS: PCP Nurse Practitioner Family; Visit Provider Nurse Practitioner Family
DX: M19.011 Primary osteoarthritis, right shoulder (principal)
CPT/HCPCS: 73030